=== PATIENT | male | born 1965 | race Caucasian/White ===

== ENCOUNTER 2023-08-10 22:23 | Emergency (ER) | payer OTHER ==
[2023-08-10 23:18] LABS: #Basophils 0.1 thou/uL (0.0-0.2); #Eosinphils 0.3 thou/uL (0.0-0.7); #Monocytes 0.8 thou/uL (0.11-0.59); #Neutrophils 4.4 thou/uL (1.40-6.50); %Basophils 0.9 % (0.0-1.0); %Eosinophils 3.8 % (0.0-10.0); %Lymphocytes 27.3 % (21.0-51.0); %Monocytes 10.6 % (0.0-10.0); %Neutrophils 57.1 % (42.0-75.0); Hemoglobin 13.7 g/dL (14.0-18.0); Mean Corpuscular HGB CONC 34.3 g/dL (32.0-36.0); Mean Corpuscular Hemoglobin 29.6 pg (27.0-31.0); Mean Corpuscular Volume 86.4 fl (78.0-98.0); Mean Platelet Volume 9.7 fL (7.4-10.4); Platelet Count 241 10x3/uL (130-400); RBC Distribution Width 13.2 % (11.5-14.5); Red Blood Cell (RBC) Count 4.63 mill/uL (4.70-6.10); White Blood Cell (WBC) Count 7.7 10x3/uL (4.8-10.8)
[2023-08-10 23:29] LABS: PTT 32.8 sec (22.9-36.1); Prothrombin Time 13.8 sec (12.0-14.7)
[2023-08-10 23:40] LABS: ALT (SGPT) 10 U/L (8-55); AST (SGOT) 12 U/L (5-34); Albumin 4.5 g/dL (3.5-5.0); Alkaline Phosphatase 70 U/L (40-110); Anion Gap 12 mmol/L (10-20); BUN (Urea Nitrogen) 15 mg/dL (8.4-25.7); Bilirubin, Total 0.5 mg/dL (0.2-1.2); Calc. Creatinine Clearance 0 mL/min (70-130); Calcium 9.6 mg/dL (7.8-10.44); Carbon Dioxide 23 mmol/L (22-29); Chloride 105 mmol/L (98-107); Estimated GFR 102; Globulin 3.1 g/dL (2.4-3.5); Glucose 91 mg/dL (70-105); Potassium 3.8 mmol/L (3.5-5.1); Protein, Total 7.6 g/dL (6.0-8.3); Sodium 136 mmol/L (136-145)
[2023-08-10] MEDS ORDERED: Bacitracin 1 PK ONE (23:46)
[2023-08-10] MEDS ORDERED: Boostrix 0.5 ML (Tdap) VIAL (>/=7 yrs of age) ONE (23:47)
== END 2023-08-11 00:37 ==
LOC: EEVIPCON 22:23 → ERS 22:23
DX: I83.018 Varicose veins of right lower extremity with ulcer other part of lower leg (principal)
CPT/HCPCS: 36415; 80053; 85025; 85610; 85730; 90471; 90715

== ENCOUNTER 2023-08-11 02:29 | Emergency (ER) | payer OTHER ==
[2023-08-11] MEDS ORDERED: Lidocaine 1% PF 5 ML VIAL ONE (05:14)
== END 2023-08-11 06:25 ==
LOC: ERS 02:29 → EEVIPCON 02:29 → ERS 06:25
DX: I83.013 Varicose veins of right lower extremity with ulcer of ankle (principal)
CPT/HCPCS: 99283